=== PATIENT | female | born 2000 | race Caucasian/White ===

== ENCOUNTER 2022-07-08 18:51 | Outpatient (CLI) | payer OTHER | END 2022-07-08 18:52 | disposition critical access hospital (66) | LOC: EMS 18:51 | DX: R10.32 Left lower quadrant pain (principal); M54.50 Low back pain, unspecified; V48.5XXA Car driver injured in noncollision transport accident in traffic accident, initial encounter; Y92.414 Local residential or business street as the place of occurrence of the external cause | CPT/HCPCS: A0425; A0429 ==

== ENCOUNTER 2022-07-08 19:40 | Emergency (ER) | payer OTHER ==
[2022-07-08 19:48] VITALS: BP 127/83
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
== END 2022-07-08 21:59 | disposition home or self-care (01) ==
LOC: ED 19:40
DX: S20.212A Contusion of left front wall of thorax, initial encounter (principal); V49.3XXA Car occupant (driver) (passenger) injured in unspecified nontraffic accident, initial encounter
CPT/HCPCS: 99282; 99283

== ENCOUNTER 2023-01-12 21:08 | Emergency (ER) | payer OTHER ==
--- NOTE | 2023-01-12 21:54 | ED Physician Documentation ---
History of Present Illness - Stated complaint Stated Complaint: FATIGUE,MEMORY LOSS, HEAD HEAVY - Chief complaint Chief Complaint: Trauma Hd/Nk - Additonal information Additional information: Patient is 22-year-old female presenting to the emergency department withChief complaint of head heaviness, headache, fuzzy thinking after fall that occurred yesterday. Reports that approximately 10 PM yesterday she fell backwards on her stairs. Is uncertain if she struck her head and is somewhat amnestic to events. Reports that she got up and went to bed. Today she has had excessive sleepiness, sleeping through an disposal man appointment which she states is atypical for her. Has been having a mild global headache as well as some fuzzy thinking. Has felt dizzy but has not had problems with balance or discoordination in her extremities. Denies previous head injuries or concussions. Review of Systems Constitutional: denies: Fever Eyes: denies: Loss of vision Ears: denies: Loss of hearing Nose: denies: Rhinorrhea / runny nose Throat: denies: Dental pain / toothache Cardiac: denies: Chest pain / pressure Respiratory: denies: Dyspnea GI: denies: Abdominal Pain : denies: Dysuria Skin: denies: Rash Musculoskeletal: denies: Neck pain Neurologic: reports: Headache, LOC Psychiatric: denies: Depressed Endocrine: denies: Polydypsia PD PAST MEDICAL HISTORY - Past Surgical History Past Surgical History: No - Present Medications Home Medications: Ambulatory Orders Medication Instructions Recorded Confirmed No Known Home Medications 07/08/22 07/08/22 - Allergies Allergies/Adverse Reactions: Allergies Allergy/AdvReac Type Severity Reaction Status Date / Time No Known Drug Allergies Allergy Verified 01/12/23 21:12 - Social History Does the pt smoke?: No PD ED PE NORMAL - Vitals Vital signs reviewed: Yes (WNL) - General General: Alert and oriented X 3, No acute distress - HEENT HEENT: Atraumatic, PERRL, EOMI, Ears normal, Moist mucous membranes, Pharynx benign, Dentition benign, Other (Negative resendez sign, negative raccoon sign, negative hemotympanum) - Neck Neck: Supple, no meningeal sign, No bony TTP, No adenopathy, No JVD, No bruit, C-Spine cleared by NEXUS criteria - Cardiac Cardiac: RRR - Respiratory Respiratory: No respiratory distress - Abdomen Abdomen: Normal bowel sounds, Non tender - Female Female : Deferred - Rectal Rectal: Deferred - Back Back: No spinal TTP - Derm Derm: Normal color - Extremities Extremities: No deformity - Neuro Neuro: Alert and oriented X 3, coding tech 2-12 intact, No motor deficit, No sensory deficit, Normal speech Results - Vitals Vitals: Vital Signs - 24 hr 01/12/23 21:12 Temperature 36.5 C Heart Rate 80 Respiratory 16 Rate Blood Pressure 133/79 H O2 Saturation 97 Oxygen O2 Source Room air PD Medical Decision Making - ED course Complexity details: re-evaluated patient, d/w patient, d/w family ED course: Patient 22-year-old female presenting to the emergency department with headache, heavy thinking after a fall that occurred yesterday. Patient amnestic to events however it sounds as though she suffered a closed head injury with loss of consciousness. No focal or lateralizing neurologic deficits on arrival to the emergency department. Patient otherwise hemodynamically stable. CT head nonacute. Overall clinical impression is consistent with mild to moderate concussion. All results communicated both with patient and patient's mother who is present at bedside. Discussed the importance of cognitive rest and follow-up as well as avoiding sport, exertional activities and discussed importance of safe driving. We will have patient follow-up with primary care. Clear return precautions given.
--- NOTE | 2023-01-12 22:34 | CT Report ---
PROCEDURE: HEAD WO INDICATIONS: Fall, LOC TECHNIQUE: Noncontrast 4.5 mm thick angled axial sections acquired from the foramen magnum to the vertex. For r adiation dose reduction, the following was used: automated exposure control, adjustment of mA and/or kV according to patient size. COMPARISON: None. FINDINGS: Image quality: There is beam hardening artifact slightly limiting evaluation. CSF spaces: Basal cisterns are patent. No extra-axial fluid collections. Ventricles are normal in size and shape. Brain: No definite intracranial hemorrhage, mass, or mass effect. There are linear densities bilater ally along the temporal lobes likely reflecting beam hardening artifact. Elaine-white matter interface appears grossly preserved. Skull and face: Calvarium and visualized facial bones are intact, without suspicious lesions. Sinuses: Visualized sinuses and mastoids are clear. IMPRESSION: 1. No definite acute intracranial abnormality. 2. Evaluation is limited by beam hardening artifact along the temporal lobes. Reviewed by: Jonny Strickland MD on 01/12/2023 10:33 PM PDT Approved by: Jonny Strickland MD on 01/12/2023 10:33 PM PDT Station ID: [id number]
[2023-01-12 23:09] VITALS: BP 125/74
== END 2023-01-12 23:09 | disposition home or self-care (01) ==
LOC: ED 21:08
DX: R51.9 Headache, unspecified (principal); R42 Dizziness and giddiness; R41.3 Other amnesia; W10.9XXA Fall (on) (from) unspecified stairs and steps, initial encounter
CPT/HCPCS: 99282; 99284

== ENCOUNTER 2023-04-21 08:00 | Outpatient (CLI) | payer OTHER ==
[2023-04-22 20:46] LABS: NEISSERIA GONORRHOEAE DNA NEGATIVE (NEGATIVE); TRICHOMONAS VAGINALIS DNA NEGATIVE (NEGATIVE)
[2023-04-22 21:01] LABS: CHLAMYDIA TRACHOMATIS DNA POSITIVE (NEGATIVE)
== END 2023-04-21 23:59 | disposition home or self-care (01) ==
LOC: LAB 08:00
PROVIDERS: ATTEND Internal Medicine
DX: Z20.2 Contact with and (suspected) exposure to infections with a predominantly sexual mode of transmission (principal); R30.0 Dysuria
CPT/HCPCS: 81001; 87086; 87491; 87591; 87661

== ENCOUNTER 2023-04-21 08:00 | Outpatient (CLI) | payer OTHER ==
[2023-04-21 20:45] LABS: BILIRUBIN,URINE NEGATIVE (NEGATIVE); GLUCOSE, URINE (UA) NEGATIVE (NEGATIVE); KETONES,URINE (UA) NEGATIVE (NEGATIVE); LEUKOCYTE ESTERASE, URINE TRACE (NEGATIVE); NITRITE,URINE NEGATIVE (NEGATIVE); OCCULT BLOOD,URINE NEGATIVE (NEGATIVE); PROTEIN,URINE NEGATIVE (NEGATIVE); UROBILINOGEN,URINE 0.2 (NORMAL) E.U./dL (NORMAL)
[2023-04-21 20:47] LABS: CLARITY,URINE CLEAR (CLEAR)
[2023-04-21 21:07] LABS: BACTERIA,URINE Few /HPF (None Seen); RBC,URINE None Seen /HPF (0-5); SQUAMOUS EPITHELIAL CELL,UR FEW Squamous (<= Few)
== END 2023-04-21 23:59 | disposition home or self-care (01) ==
LOC: LAB.S 08:00
PROVIDERS: ATTEND Internal Medicine
DX: R30.0 Dysuria (principal)
CPT/HCPCS: 81001; 87086

== ENCOUNTER 2023-04-25 12:46 | Outpatient (CLI) | payer OTHER ==
[2023-04-26 03:10] LABS: HCV AB Non Reactive (Non Reactive); HIV SCREEN 4TH GENERATION Non Reactive (Non Reactive)
[2023-04-26 05:13] LABS: RPR Non Reactive (Non Reactive)
== END 2023-04-25 12:47 | disposition home or self-care (01) ==
LOC: LAB.S 12:46
PROVIDERS: ATTEND Internal Medicine
DX: Z20.2 Contact with and (suspected) exposure to infections with a predominantly sexual mode of transmission (principal)
CPT/HCPCS: 36415; 86592; 86803; 87389

== ENCOUNTER 2024-04-23 07:00 | Outpatient (CLI) | payer SELFPAY | END 2024-04-23 23:59 | disposition home or self-care (01) | LOC: LAB.S 07:00 | PROVIDERS: ATTEND Registered Nurse | DX: R30.0 Dysuria (principal) | CPT/HCPCS: 87086; 87181 ==